=== PATIENT | male | born 1985 | race American Indian/Alaskan Native ===

== ENCOUNTER 2016-04-10 14:21 | Emergency (ER) | payer MEDICARE ==
[2016-04-10] MEDS ORDERED: TYLENOL PO ONE (15:11)
--- NOTE | 2016-04-10 15:16 | Emergency Department Report ---
Chief Complaint: Urogenital-Male Stated Complaint: NO URINATION Time Seen by Provider: 04/10/16 15:05 - HPI History of Present Illness: Patient here complaining of painful urination. He said he feels clogged up in his penis. Patient said there is a little sore over the opening of his penis. He said he was seen at [facility] on Thursday and they told him to follow up with urology. He said they gave him [place] 5 and ciprofloxacin. Patient has paperwork. He said that medication is not helping. Patient reports chills but does not he has a fever. Temperature in triage is 101.2. He was given an Tylenol 975 mg. Patient said that he thinks he got a rash from underwear. Patient is on dialysis 3 times a week last dialysis was on Thursday he said he couldn't go today because he was in too much pain. Pain is 10 out of 10 to the tip of his penis. Denies testicular or scrotal pain or swelling. Denies any penile discharge. Denies any abdominal pain. PT said he only makes urine twice a day any urinated once already today. Denies any shortness of breath or chest pain. Patient has left forearm fistula. - ROS Review of Systems: All systems are negative unless stated in HPI above - Exam Vital Signs: Vital Signs 04/10/16 14:23 Temperature 101.2 F H Pulse Rate 86 Respiratory 16 Rate Blood Pressure 114/69 O2 Sat by Pulse 98 Oximetry Physical Exam: General: This is a 30-year-old male well-nourished well-developed nontoxic in appearance. Male : No testicular mass or scrotal swelling. Testicles and scrotum nontender to palpate without any erythema. Glans penis appears to have scab over meatus. Area was cleaned off and meatus is open. Area tender and erythema. Abdomen: Nontender to palpate, no guarding or rebound tenderness. Bowel sounds. MSE screening note: Focused history and physical exam performed. Due to findings the following was ordered:see mdm ED Medical Decision Making - Medical Decision Making Medical decision makingMedical decision making: Patient seen by provider in triage area. Appropriate protocol activated and patient to main ED to be seen by physician. ED Disposition for MSE Condition: Stable
[2016-04-10] MEDS ORDERED: TYLENOL ONE (15:18)
[2016-04-10 17:03] LABS: BUN/Creatinine Ratio 4.33; Calcium 8.8 mg/dL (8.4-10.2); Chloride 90.6 mmol/L (98-107); Potassium 4.6 mmol/L (3.6-5.0)
[2016-04-10 17:12] LABS: Mean Corpuscular HGB Conc 32 % (32-34); Mean Corpuscular Volume 79 fl (84-94); Platelet Count 192 K/mm3 (140-440); Red Blood Count 3.18 M/mm3 (3.65-5.03); White Blood Count 7.2 K/mm3 (4.5-11.0)
[2016-04-10 17:21] LABS: Mean Corpuscular Hemoglobin 25 pg (28-32); Red Cell Distribution Width 22.6 % (13.2-15.2)
[2016-04-10 20:31] LABS: Basophils % (Manual) 0 % (0.0-1.8); Blastocytes % (Manual) 0 %
[2016-04-10 20:32] LABS: Diff Status Complete; Elliptocytes 1+; Platelet Estimate Consistent w Auto
[2016-04-10] MEDS ORDERED: BENADRYL PO ONE (21:10)
[2016-04-10] MEDS ORDERED: LIDOCAINE VISCOUS 2% MM STA (21:10)
[2016-04-10] MEDS ORDERED: DILAUDID IM ONE (21:10)
--- NOTE | 2016-04-10 21:11 | Emergency Department Report ---
ED General Adult HPI - General Chief complaint: Urogenital-Male Stated complaint: NO URINATION Time Seen by Provider: 04/10/16 15:05 Source: patient, EMS (ems notes not available at time of chart dictation) Mode of arrival: Wheelchair Limitations: No Limitations - History of Present Illness Initial comments: Is a 30-year-old male, previously unknown to me. Has a past medical history of end-stage renal disease on dialysis. Has a left upper extremity AV fistula. Also is on Coumadin therapy for mechanical mitral valve replacement. Patient presents to the ER complaining of penile pain for a few days. The patient reports that he was able to urinate this morning. He further reports that secondary to his renal insufficiency, he only urinates once per day. The patient was seen at [facility] on April 08, was diagnosed with hematuria, and started on ciprofloxacin and hydrocodone/acetaminophen, and instructed to follow-up with urology. The patient has not followed up with urology. The penile pain is sharp. It increases with palpation, and decreases with rest. Patient denies rectal pain, hematochezia, denies headache, neck pain, chest pain , abdominal pain and shortness of breath. He further reports that he is able to tolerate hydromorphone, and that it only causes him to itch. -: Gradual Location: genitals Severity scale (0 -10): 8 Quality: aching Consistency: constant Improves with: movement, rest Worsens with: other (palpation) Associated Symptoms: denies: confusion, chest pain, cough, diaphoresis, headaches, loss of appetite, malaise, nausea/vomiting, rash, seizure, shortness of breath, syncope, weakness - Related Data Home Medications Medication Instructions Recorded Confirmed Last Taken Cinacalcet HCl [Sensipar] 120 mg PO DAILY 02/16/16 04/10/16 Unknown Clonidine HCl [Catapres] 0.3 mg PO TID 02/16/16 04/10/16 Unknown Minoxidil [Loniten] 5 mg PO BID 02/16/16 04/10/16 Unknown Warfarin [Coumadin] 5 mg PO QDAY 02/16/16 04/10/16 Unknown Zolpidem [Ambien] 10 mg PO QHS PRN 02/16/16 04/10/16 Unknown Previous Rx's Medication Instructions Recorded Last Taken Type Doxycycline [Vibramycin] 100 mg PO Q12HR #14 capsule 04/10/16 Unknown Rx Allergies Allergy/AdvReac Type Severity Reaction Status Date / Time hydromorphone HCl Allergy Itching Verified 02/16/16 20:38 [From Dilaudid] ED Review of Systems ROS: Stated complaint: NO URINATION Other details as noted in HPI Constitutional: malaise. denies: weakness Eyes: denies: vision change ENT: denies: epistaxis Respiratory: denies: cough Cardiovascular: denies: chest pain Gastrointestinal: as per HPI. denies: vomiting Genitourinary: as per HPI Musculoskeletal: as per HPI, back pain Neurological: as per HPI Psychiatric: anxiety ED Past Medical Hx - Past Medical History Hx Hypertension: Yes Hx Congestive Heart Failure: No Hx Renal Disease: Yes Hx Asthma: No Hx COPD: No - Surgical History Past Surgical History?: Yes Additional Surgical History: mitral valve replacement (mechanical. On Coumadin) - Social History Smoking Status: Never Smoker Substance Use Type: Alcohol - Medications Home Medications: Home Medications Medication Instructions Recorded Confirmed Last Taken Type Cinacalcet HCl [Sensipar] 120 mg PO DAILY 02/16/16 04/10/16 Unknown History Clonidine HCl [Catapres] 0.3 mg PO TID 02/16/16 04/10/16 Unknown History Minoxidil [Loniten] 5 mg PO BID 02/16/16 04/10/16 Unknown History Warfarin [Coumadin] 5 mg PO QDAY 02/16/16 04/10/16 Unknown History Zolpidem [Ambien] 10 mg PO QHS PRN 02/16/16 04/10/16 Unknown History Doxycycline [Vibramycin] 100 mg PO Q12HR #14 capsule 04/10/16 Unknown Rx ED Physical Exam - General Limitations: No Limitations General appearance: alert - Head Head exam: Present: atraumatic, normocephalic - Eye Eye exam: Present: normal appearance, EOMI. Absent: nystagmus - ENT ENT exam: Present: normal exam, normal orophraynx, mucous membranes moist - Neck Neck exam: Present: normal inspection, full ROM. Absent: tenderness, meningismus - Respiratory Respiratory exam: Present: normal lung sounds bilaterally. Absent: respiratory distress, wheezes, rales, rhonchi, stridor, decreased breath sounds - Cardiovascular Cardiovascular Exam: Present: regular rate, normal rhythm, normal heart sounds. Absent: bradycardia, tachycardia, irregular rhythm, systolic murmur, diastolic murmur, rubs, gallop - GI/Abdominal GI/Abdominal exam: Present: soft, normal bowel sounds. Absent: distended, tenderness, guarding, rebound, rigid - Rectal Rectal exam: Present: deferred - exam: Present: other (there is no testicular tenderness. Cremasteric reflexes intact bilaterally. Normal testicular lie.). Absent: scrotal swelling External exam: Present: other (the distal tip of the phallus is somewhat tender. Crusted blood is noted at the meatus. The lateral/. Aspect of the phallus at 3:00 is minimally tender. There is no fluctuance, crepitus, streaking or induration. During the genital exam, I am escorted by DAYAMI LOPEZ ) - Extremities Exam Extremities exam: Present: normal inspection, full ROM, normal capillary refill , other (left upper extremity AV fistula with appropriate thrill). Absent: tenderness, pedal edema, joint swelling, calf tenderness - Back Exam Back exam: Present: normal inspection, full ROM. Absent: tenderness, CVA tenderness (R), CVA tenderness (L), muscle spasm, paraspinal tenderness, vertebral tenderness - Neurological Exam Neurological exam: Present: alert, oriented X3, normal gait, other (Extraocular movements intact. Tongue midline. No facial droop. Facial sensation intact to light touch in the V1, V2, V3 distribution bilaterally. 5 and 5 strength in 4 extremities.. Sensation is intact to light touch in 4 extremities.). Absent : motor sensory deficit - Psychiatric Psychiatric exam: Present: normal affect, normal mood - Skin Skin exam: Present: warm, dry, intact, normal color. Absent: rash ED Course Vital Signs 04/10/16 04/10/16 04/10/16 14:23 15:21 20:34 Temperature 101.2 F H Pulse Rate 86 54 L Respiratory 16 20 16 Rate Blood Pressure 114/69 Blood Pressure 98/57 [Left] O2 Sat by Pulse 98 95 Oximetry 04/10/16 04/10/16 21:23 21:30 Temperature 98.8 F Pulse Rate 94 H Respiratory 16 Rate Blood Pressure Blood Pressure 107/61 [Left] O2 Sat by Pulse 95 Oximetry - Reevaluation(s) Reevaluation #1: 04/10/16 22:01 Differential diagnosis: Penile pain, soft tissue distal penile infection/ cellulitis, INR abnormality assessment and plan: 30-year-old male with distal penile pain the patient reports he was able to urinate once this morning. He refuses/declined straight catheterization, indicating that he did not think he would have enough urine. Initially was febrile. However, his physical exam is otherwise unremarkable except for distant penile pain. He has no rectal pain and no symptoms to suggest prostatitis. His abdomen is soft and benign, and the remainder of his physical exam is unremarkable. The patient was instructed as to the importance of outpatient follow-up with urology. He can take oral antibiotics. We will await the return of his INR. I will discontinue ciprofloxacin, and initiate him on an antibiotic that has skin and soft tissue coverage that will not interfere with his INR. Reevaluation #2: 04/10/16 22:29 INR subtherapeutic. Patient comfortably. He will be discharged. He is instructed to follow up with outpatient cardiology for his subtherapeutic INR, nephrology as scheduled, and outpatient urology. Return precautions are extensively reviewed. ED Medical Decision Making - Lab Data Result diagrams: 04/10/16 16:33 04/10/16 16:33 Vital Signs 04/10/16 04/10/16 04/10/16 14:23 15:21 20:34 Temperature 101.2 F H Pulse Rate 86 54 L Respiratory 16 20 16 Rate Blood Pressure 114/69 Blood Pressure 98/57 [Left] O2 Sat by Pulse 98 95 Oximetry 04/10/16 04/10/16 21:23 21:30 Temperature 98.8 F Pulse Rate 94 H Respiratory 16 Rate Blood Pressure Blood Pressure 107/61 [Left] O2 Sat by Pulse 95 Oximetry Lab Results 04/10/16 04/10/16 Range/Units 16:33 16:33 WBC 7.2 (4.5-11.0) K/mm3 RBC 3.18 L (3.65-5.03) M/mm3 Hgb 8.0 L (11.8-15.2) gm/dl Hct 25.0 L (35.5-45.6) % MCV 79 L (84-94) fl MCH 25 L (28-32) pg MCHC 32 (32-34) % RDW 22.6 H (13.2-15.2) % Plt Count 192 (140-440) K/mm3 Add Manual Diff Complete Total Counted 100 Seg Neuts % (Manual) 85.0 H (40.0-70.0) % Band Neutrophils % 0 % Lymphocytes % (Manual) 11.0 L (13.4-35.0) % Reactive Lymphs % (Man) 0 % Monocytes % (Manual) 2.0 (0.0-7.3) % Eosinophils % (Manual) 2.0 (0.0-4.3) % Basophils % (Manual) 0 (0.0-1.8) % Metamyelocytes % 0 % Myelocytes % 0 % Promyelocytes % 0 % Blast Cells % 0 % Nucleated RBC % Not Reportable Seg Neutrophils # Man 6.1 (1.8-7.7) K/mm3 Band Neutrophils # 0.0 K/mm3 Lymphocytes # (Manual) 0.8 L (1.2-5.4) K/mm3 Abs React Lymphs (Man) 0.0 K/mm3 Monocytes # (Manual) 0.1 (0.0-0.8) K/mm3 Eosinophils # (Manual) 0.1 (0.0-0.4) K/mm3 Basophils # (Manual) 0.0 (0.0-0.1) K/mm3 Metamyelocytes # 0.0 K/mm3 Myelocytes # 0.0 K/mm3 Promyelocytes # 0.0 K/mm3 Blast Cells # 0.0 K/mm3 WBC Morphology Not Reportable Hypersegmented Neuts Not Reportable Hyposegmented Neuts Not Reportable Hypogranular Neuts Not Reportable Smudge Cells Not Reportable Toxic Granulation Not Reportable Toxic Vacuolation Not Reportable Dohle Bodies Not Reportable Pelger-Huet Anomaly Not Reportable Rusty Rods Not Reportable Platelet Estimate Consistent w auto Clumped Platelets Not Reportable Plt Clumps, EDTA Not Reportable Large Platelets Not Reportable Giant Platelets Not Reportable Platelet Satelliting Not Reportable Plt Morphology Comment Not Reportable RBC Morphology Not Reportable Dimorphic RBCs Not Reportable Polychromasia Not Reportable Hypochromasia Not Reportable Poikilocytosis Not Reportable Anisocytosis Not Reportable Microcytosis Not Reportable Macrocytosis Not Reportable Spherocytes Not Reportable Pappenheimer Bodies Not Reportable Sickle Cells Not Reportable Target Cells Not Reportable Tear Drop Cells Not Reportable Ovalocytes Not Reportable Helmet Cells Not Reportable Desir-Dean Bodies Not Reportable [place] Rings Not Reportable [place] Cells Not Reportable Bite Cells Not Reportable Crenated Cell Not Reportable Elliptocytes 1+ Acanthocytes (Spur) Not Reportable Rouleaux Not Reportable Hemoglobin C Crystals Not Reportable Schistocytes Not Reportable Malaria parasites Not Reportable Donovan Bodies Not Reportable Hem Pathologist Commnt No Sodium 137 (137-145) mmol/L Potassium 4.6 (3.6-5.0) mmol/L Chloride 90.6 L (98-107) mmol/L Carbon Dioxide 21 L (22-30) mmol/L Anion Gap 30 mmol/L BUN 49 H (9-20) mg/dL Creatinine 11.3 H (0.8-1.5) mg/dL Estimated GFR 6 ml/min BUN/Creatinine Ratio 4.33 % Glucose 118 H (75-100) mg/dL Calcium 8.8 (8.4-10.2) mg/dL Critical care attestation.: If time is entered above; I have spent that time in minutes in the direct care of this critically ill patient, excluding procedure time. ED Disposition Clinical Impression: Penile pain, Subtherapeutic international normalized ratio (INR) Disposition: DISCHARGED TO HOME OR SELFCARE Is pt being admited?: No Does the pt Need Aspirin: No Condition: Stable Instructions: Warfarin (By mouth) Additional Instructions: Take the antibiotics as directed. Discontinue ciprofloxacin consumption. Coumadin level/INR was quite low. Take an additional dose of Coumadin tomorrow , and the next day. This is a total of 3 days (including todays extra dose). I recommend he follow up with her primary care doctor or disintegrator operator within the next 3-5 days to follow-up for your decrease Coumadin level. Not following up in a timely fashion may result in persistent low level of your INR, which in turn places U at risk for stroke. Follow-up with a urology specialist within the next 5-[address] Dougherty is local urology specialist. Return to the ER right away with new pain, worsening pain, migration of pain, intractable nausea or vomiting, inability to tolerate liquid feeds Prescriptions: Doxycycline [Vibramycin] 100 mg PO Q12HR #14 capsule Referrals: PRIMARY CARE, [Primary Care Provider] - 3-5 Days HEATHER DOUGHERTY MD [Staff Physician] - 3-5 Days NORMA KING MD [Staff Physician] - 3-5 Days ANIVAL BASSETT MD [Staff Physician] - 3-5 Days
[2016-04-10 21:30] VITALS: BP 107/61
[2016-04-10 22:11] LABS: INR 1.56 (0.87-1.13)
[2016-04-10 22:12] LABS: Partial Thromboplastin Time 54.9 Sec. (24.2-36.6)
[2016-04-10] MEDS ORDERED: COUMADIN PO ONE (22:32)
[2016-04-10] MEDS ORDERED: VIBRAMYCIN PO ONE (22:32)
== END 2016-04-10 23:26 | disposition home or self-care (01) ==
LOC: ED 14:21
DX: N48.89 Other specified disorders of penis (principal); R79.1 Abnormal coagulation profile; I10 Essential (primary) hypertension; N28.9 Disorder of kidney and ureter, unspecified; Z79.01 Long term (current) use of anticoagulants; Z88.5 Allergy status to narcotic agent; Z98.890 Other specified postprocedural states
CPT/HCPCS: 36415; 80048; 85007; 85025; 85610; 85730; 96372; 99284; J1170